=== PATIENT | female | born 1985 | race Caucasian/White ===

== ENCOUNTER 2021-07-08 12:33 | Emergency (ER) | payer OTHER ==
[~2021-07-08] VITALS: Wt 88.5 kg
[2021-07-08] MEDS ORDERED: CETIRIZINE HYDR10 MG PO (12:57)
[2021-07-08] MEDS ORDERED: PREDNISONE20 M1 PO (12:57)
[2021-07-08] MEDS ORDERED: AMITRIPTYLINE25 MG PO (12:57)
[2021-07-08] MEDS ORDERED: HYDROCODONE-AC1 EAC1 PO (16:32)
== END 2021-07-08 16:45 | disposition home or self-care (01) ==
LOC: ED 12:33
DX: S60.221A Contusion of right hand, initial encounter (principal); Z88.1 Allergy status to other antibiotic agents; Z79.899 Other long term (current) drug therapy; W22.8XXA Striking against or struck by other objects, initial encounter; Y93.89 Activity, other specified; Y92.89 Other specified places as the place of occurrence of the external cause; Y99.8 Other external cause status